=== PATIENT | female | born 1940 | race Asian ===

== ENCOUNTER 2020-04-29 21:44 | Emergency (ER) | payer SELFPAY ==
--- NOTE | 2020-04-29 22:35 | CT ---
CT cervical spine noncontrast HISTORY: Fall. Neck injury. FINDINGS: Vertebral body heights are maintained. No acute fracture or dislocation are apparent. Cervi cothoracic junction is intact. Disc space narrowing and minimal degenerative retrolisthesis at the C3-4 level where posterior disc b ulge and circumferential degenerative changes are also present, resulting in severe stenosis of the central canal. Multilevel foraminal stenoses are also present. Disc space narrowing is most pronounce d at the C5-6 level. Within the left thyroid lobe, a heterogeneous partially cystic mass containing calcification measures up to 2.0 cm length. Additional smaller low-density nodules are also evident within each thyroid lobe. IMPRESSION : Prominent degenerative changes of the cervical spine. No acute osseous abnormalities are demonstrated . Complex left thyroid lobe mass with calcifications. Further evaluation warranted. Please consider out patient dedicated thyroid sonogram for better characterization.
--- NOTE | 2020-04-29 22:37 | CT ---
CT head noncontrast HISTORY: Fall. Injury. FINDINGS: There is no evidence of acute intracranial hemorrhage or infarct. Mild diffuse cortical atr ophy. 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 Small foci of dystrophic calcification at the basal ganglia. There is no mass effect or shift of midline structures. Small amount of fluid within a right ethmoid air cell. No fractures evident. Scalp injury overlies the posterior vertex.. Small amount of gas may reflect a laceration of the scalp. IMPRESSION : No acute intracranial abnormalities are demonstrated.
--- NOTE | 2020-04-29 22:54 | RAD ---
Left shoulder 3 views HISTORY: Injury. FINDINGS: Acromioclavicular and glenohumeral alignment are maintained. No acute fracture or dislocati on. IMPRESSION : No abnormalities are demonstrated.
--- NOTE | 2020-04-29 22:55 | RAD ---
Chest one view HISTORY: Chest pain. FINDINGS: Cardiac silhouette and pulmonary vasculature are unremarkable. Mediastinum is midline with aortic calcification. No lobar consolidation or evidence of pneumothorax. IMPRESSION : No active cardiopulmonary abnormalities are demonstrated. Atherosclerosis.
--- NOTE | 2020-04-29 22:56 | RAD ---
Left humerus 2 views HISTORY: Injury. FINDINGS: No abnormalities are demonstrated.
--- NOTE | 2020-04-29 22:57 | RAD ---
Sacrum/coccyx 3 views HISTORY: Fall. Injury. FINDINGS: Sacral alae are intact. Mild degenerative changes of the sacroiliac joints and hips. No fracture or dislocation are apparent. IMPRESSION : No acute osseous abnormalities are demonstrated.
[2020-04-29 23:18] LABS: #Lymphocytes 0.8 thou/uL (1.20-3.40); #Monocytes 0.5 thou/uL (0.11-0.59); #Neutrophils 8.6 thou/uL (1.40-6.50); %Basophils 0.4 % (0.0-1.0); %Eosinophils 0.3 % (0.0-10.0); %Lymphocytes 7.7 % (21.0-51.0); %Monocytes 5.2 % (0.0-10.0); %Neutrophils 86.5 % (42.0-75.0); Hemoglobin 12.5 g/dL (12.0-16.0); Mean Corpuscular HGB CONC 32.9 g/dL (32.0-36.0); Mean Corpuscular Hemoglobin 32.7 pg (27.0-31.0); Mean Corpuscular Volume 99.3 fL (78.0-98.0); Mean Platelet Volume 6.4 fL (7.4-10.4); Platelet Count 207 thou/uL (130-400); Red Blood Cell (RBC) Count 3.82 mill/uL (4.20-5.40); White Blood Cell (WBC) Count 9.9 thou/uL (4.8-10.8)
[2020-04-29 23:40] LABS: ALT (SGPT) 38 U/L (8-55); AST (SGOT) 35 U/L (5-34); Albumin 4.1 g/dL (3.4-4.8); Alkaline Phosphatase 40 U/L (40-110); Anion Gap 16 mmol/L (10-20); BUN (Urea Nitrogen) 20 mg/dL (9.8-20.1); Calc. Creatinine Clearance 0 mL/min (70-130); Calcium 8.9 mg/dL (7.8-10.44); Carbon Dioxide 24 mmol/L (23-31); Chloride 106 mmol/L (98-107); Globulin 2.4 g/dL (2.4-3.5); Glucose 116 mg/dL (83-110); Potassium 4.2 mmol/L (3.5-5.1); Protein, Total 6.5 g/dL (6.0-8.3); Sodium 142 mmol/L (136-145)
[2020-04-30 00:31] LABS: Bilirubin Negative (Negative); Blood, Urine Negative (Negative); Clarity Clear (Clear); Glucose, Urine (Dipstick) Normal (Negative); Ketone, Urine 10 mg/dL (Negative); Leukocyte Negative Leu/uL (Negative); Nitrite Negative (Negative); Protein, Urine (Dipstick) 20 mg/dL (Neg-Trace); Specific Gravity, Urine 1.019 (1.002-1.036); Urobilinogen Normal mg/dL (Less than 2)
== END 2020-04-30 01:03 | disposition home or self-care (01) ==
LOC: ERS 21:44
DX: S01.01XA Laceration without foreign body of scalp, initial encounter (principal); S60.222A Contusion of left hand, initial encounter; S40.222A Blister (nonthermal) of left shoulder, initial encounter; R42 Dizziness and giddiness; R29.700 NIHSS score 0; M53.3 Sacrococcygeal disorders, not elsewhere classified; W01.0XXA Fall on same level from slipping, tripping and stumbling without subsequent striking against object, initial encounter; Y92.009 Unspecified place in unspecified non-institutional (private) residence as the place of occurrence of the external cause
CPT/HCPCS: 70450; 71045; 72125; 72220; 80053; 81003; 84484; 85025; 93005

== ENCOUNTER 2020-05-02 09:46 | Inpatient (IN) | payer SELFPAY ==
[2020-05-02 11:02] LABS: #Basophils 0.1 thou/uL (0.0-0.2); #Monocytes 0.6 thou/uL (0.11-0.59); %Eosinophils 0.7 % (0.0-10.0); %Lymphocytes 14.9 % (21.0-51.0); %Monocytes 9.2 % (0.0-10.0); %Neutrophils 74.3 % (42.0-75.0); Hemoglobin 11.7 g/dL (12.0-16.0); Mean Corpuscular HGB CONC 33.4 g/dL (32.0-36.0); Mean Corpuscular Hemoglobin 33.4 pg (27.0-31.0); Mean Platelet Volume 6.4 fL (7.4-10.4); Platelet Count 209 thou/uL (130-400); RBC Distribution Width 11.8 % (11.5-14.5); White Blood Cell (WBC) Count 6.7 thou/uL (4.8-10.8)
--- NOTE | 2020-05-02 11:13 | RAD ---
PORTABLE CHEST: HISTORY: Recurrent falls. FINDINGS: Lungs are clear. No infiltrate or vascular congestion. Heart size upper normal. No effusion. IMPRESSION: No acute abnormality. POS: [facility]
[2020-05-02 11:34] LABS: ALT (SGPT) 28 U/L (8-55); AST (SGOT) 21 U/L (5-34); Albumin 3.9 g/dL (3.4-4.8); Alkaline Phosphatase 45 U/L (40-110); Anion Gap 12 mmol/L (10-20); BUN (Urea Nitrogen) 16 mg/dL (9.8-20.1); Bilirubin, Total 0.8 mg/dL (0.2-1.2); Calc. Creatinine Clearance 0 mL/min (70-130); Calcium 8.7 mg/dL (7.8-10.44); Carbon Dioxide 26 mmol/L (23-31); Chloride 107 mmol/L (98-107); Globulin 2.4 g/dL (2.4-3.5); Glucose 91 mg/dL (83-110); Potassium 3.4 mmol/L (3.5-5.1); Protein, Total 6.3 g/dL (6.0-8.3); Sodium 142 mmol/L (136-145)
[2020-05-02 15:28] LABS: Troponin I 0.012 ng/mL (< 0.028)
--- NOTE | 2020-05-02 16:09 | HP ---
[facility] CHIEF COMPLAINT: Falls. HISTORY OF PRESENT ILLNESS: This is a 79-year-old female, who presented to [facility] after apparently sustaining multiple falls beginning on 04/29/2020. The patient sustained multiple falls, landing on her scalp and back, presenting to the emergency room for evaluation. The patient underwent multiple imaging studies without evidence of acute fracture or dislocation. The patient underwent CT of the brain and cervical spine showing no acute process. The patient was recommended for potential admission and further evaluation, however, the family decided to return home due to lack of insurance. The patient apparently sustained another fall after returning home. At which point, family brought the patient back to the emergency room on 05/02/2020, for evaluation. The daughter reports the patient has been using a walker and a wheelchair; however, she is generally unattended at the daughter's home for most of the day as the daughter and her work and her children are at school. The daughter also reports the patient has exhibited some evidence of shortness of breath, especially with exertion or attempting to rise from a chair. No specific documented previous medical conditions or chronic medication per daughter's report. No recent medication exposure, fever, chills, or travel history. The patient did sustain bruising to her extremities with some pain in her hips and tailbone; however, no specific fracture was identified. In the emergency room, the patient underwent general evaluation with metabolic screening showing essentially negative findings. CT of the brain showed no acute intracranial process and plain radiographs and CT of the cervical spine were negative. PAST MEDICAL HISTORY: Question of early dementia. No specific treatment or evaluation. PAST SURGICAL HISTORY: Reviewed and negative. 1. Status post appendectomy. 2. Status post bilateral tubal ligation. CURRENT MEDICATIONS: Reviewed and negative. ALLERGIES: SULFA. FAMILY HISTORY: No inheritable diseases per family report. SOCIAL HISTORY: Resides in [place], [place], living with her daughter and son-in-law, originally from [facility]. No alcohol, tobacco, or illicit drug use. . REVIEW OF SYSTEMS: CONSTITUTIONAL: Negative for weight loss or gain, ability to conduct usual activities. SKIN: Negative for rash, itching. EYES: Negative for double vision, pain. ENT/MOUTH: Negative for nose bleeding, neck stiffness, pain, tenderness. CARDIOVASCULAR: Negative for palpitations, dyspnea on exertion, orthopnea. RESPIRATORY: Negative for shortness of breath, wheezing, cough, hemoptysis, fever or night sweats. GASTROINTESTINAL: Negative for poor appetite, abdominal pain, heartburn, nausea, vomiting, constipation, or diarrhea. GENITOURINARY: Negative for urgency, frequency, dysuria, nocturia. MUSCULOSKELETAL: Negative for pain, swelling. NEUROLOGIC/PSYCHIATRIC: Negative for anxiety, depression. ALLERGY/IMMUNOLOGIC: Negative for skin rash, bleeding tendency. Otherwise, negative except as stated per HPI. PHYSICAL EXAMINATION: VITAL SIGNS: On admission; blood pressure 107/67, pulse 84, respiratory rate 16, temperature 98 degrees Fahrenheit, and O2 saturation 100% on room air. GENERAL APPEARANCE: This is a 79-year-old female alert, smiling, responsive, in no acute distress. HEENT: Pupils are equal, round, reactive to light and accommodation. Extraocular muscles are intact. No scleral icterus. No conjunctival injection. Nares patent. OP is clear. Teeth in good repair. NECK: Supple. No cervical adenopathy. No thyromegaly. No carotid bruits. No JVD appreciated. Cervical spine with full active and passive range of motion. No meningeal signs noted. CHEST: Lungs are clear to auscultation bilaterally. CARDIOVASCULAR: S1 and S2 without noted murmur, rub, or gallop. ABDOMEN: Rounded, soft, nontender, and nondistended. Bowel sounds are positive in all 4 quadrants. There is no hepatosplenomegaly. No abdominal bruits no rebound or guarding appreciated. EXTREMITIES: Warm and dry with fair turgor. Bruising noted on the upper extremities. Mild pitting edema noted to the mid shins bilaterally. Pulses palpable distally at the dorsalis pedis, posterior tibial, and popliteal arteries bilaterally. Capillary refill less than 2 seconds. NEUROLOGIC: Cranial nerves 2 through 12 are grossly intact. No focal or lateralizing signs appreciated. Not observed ambulatory during this exam. PERTINENT LABORATORY AND X-RAY FINDINGS: Sodium 142, potassium 3.4, chloride 107, CO2 of 26, BUN 16, creatinine 0.84, glucose 91, calcium 8.7. LFTs within normal limits. Troponin I negative x1. BNP less than 10. TSH 1.21. CBC showed a white blood cell count of 6.7, hemoglobin 12, hematocrit 35, MCV 100, and platelet count [address] of the cervical spine dated 04/29/2020, showed no acute intracranial process. CT of the cervical spine dated 04/29/2020, showed no acute fracture or dislocation. Plain radiographs of the left upper extremity showed no fracture or dislocation. Telemetry monitoring shows sinus mechanism with heart rates in the 70s. ASSESSMENT AND PLAN: 1. Vertigo with falls. The patient will be observed on the stroke unit. We will continue evaluation to include MRI imaging of the brain to rule out occult cerebrovascular accident. Check orthostatic vital signs and carotid Doppler study. Check 2D transthoracic echocardiogram. PT evaluation for functional assessment. 2. Closed head injury, status post fall. Continue supportive management. General fall risk precautions. See #1 above. 3. Macrocytic anemia. Check B12 and folate level in the a.m. Repeat CBC. 4. Hypokalemia. Potassium chloride supplementation with repeat potassium level in the a.m. 5. Prophylaxis. SCDs while in bed. Pepcid 20 mg p.o. b.i.d. PT evaluation pending. 6. Code status is full. Surrogate medical decision maker is the patient's daughter. Job ID: [id number]
[2020-05-02 16:53] LABS: Bilirubin Negative (Negative); Blood, Urine Negative (Negative); Clarity Clear (Clear); Glucose, Urine (Dipstick) Normal (Negative); Ketone, Urine Negative (Negative); Leukocyte Negative Leu/uL (Negative); Nitrite Negative (Negative); Protein, Urine (Dipstick) Negative (Neg-Trace); Specific Gravity, Urine 1.019 (1.002-1.036); Urobilinogen Normal mg/dL (Less than 2); pH, Urine 6.5 (5.0-9.0)
[2020-05-02 17:22] LABS: Troponin I 0.014 ng/mL (< 0.028)
[2020-05-02] MEDS ORDERED: Ondansetron ODT 4 MG TAB PO PRN (19:04)
[2020-05-02] MEDS ORDERED: Ondansetron PF 4 MG/2 ML Vial IVP PRN (19:04)
[2020-05-02] MEDS ORDERED: Acetaminophen 500 MG TAB PO PRN (19:04)
[2020-05-02 19:06] VITALS: BMI 19.5
[2020-05-02] MEDS ORDERED: Potassium Chloride 20 MEQ TAB PO SCH (22:00)
--- NOTE | 2020-05-02 22:38 | ULT ---
BILATERAL CAROTID DUPLEX ULTRASOUND: HISTORY: Vertigo. Falls. TECHNIQUE: Grayscale, color-flow and spectral Doppler ultrasound imaging of the extracranial carotid artery syst ems and vertebral arteries was performed bilaterally. FINDINGS: No large amount of echogenic plaque is seen involving the common carotid or internal carotid arteries . The peak systolic velocity in the right ICA measures 66.1 cm/s. The peak systolic velocity in the ri ght CCA measures 86.0 cm/s. The peak systolic velocity in the left ICA measures 66.4 cm/s. The peak systolic velocity in the l eft CCA measures 93.0 cm/s. The right IC/CC ration is0.8. The left IC/CC ratio is 0.7. Vertebral flow: antegrade, bilaterally. Solid and cystic mass in the left thyroid lobe, incompletely evaluated measuring 2.5 x 2.3 x 3.5 cm. IMPRESSION: 1. No hemodynamically significant stenosis of left or right cervical carotid artery 2. Complex left thyroid nodule. Nonemergent outpatient thyroid ultrasound is recommended.
[2020-05-02] MEDS: Famotidine 20 MG TAB PO SCH (22:40)
[2020-05-03 04:45] LABS: #Eosinphils 0.1 thou/uL (0.0-0.7); #Lymphocytes 1.3 thou/uL (1.20-3.40); #Monocytes 0.7 thou/uL (0.11-0.59); #Neutrophils 5.9 thou/uL (1.40-6.50); %Basophils 0.5 % (0.0-1.0); %Eosinophils 1.4 % (0.0-10.0); %Lymphocytes 15.9 % (21.0-51.0); %Monocytes 8.4 % (0.0-10.0); %Neutrophils 73.7 % (42.0-75.0); Hemoglobin 11.2 g/dL (12.0-16.0); Mean Corpuscular HGB CONC 33.5 g/dL (32.0-36.0); Mean Corpuscular Volume 98.7 fL (78.0-98.0); Mean Platelet Volume 6.3 fL (7.4-10.4); Platelet Count 232 thou/uL (130-400); White Blood Cell (WBC) Count 7.9 thou/uL (4.8-10.8)
[2020-05-03 05:05] LABS: Anion Gap 12 mmol/L (10-20); BUN (Urea Nitrogen) 17 mg/dL (9.8-20.1); Calc. Creatinine Clearance 42 mL/min (70-130); Calcium 8.1 mg/dL (7.8-10.44); Carbon Dioxide 22 mmol/L (23-31); Chloride 110 mmol/L (98-107); Glucose 138 mg/dL (83-110); Potassium 4.6 mmol/L (3.5-5.1); Sodium 139 mmol/L (136-145)
[2020-05-03] MEDS ORDERED: Magnevist 469MG/ML 20 ML VIAL ONE (09:25)
[2020-05-03] MEDS: Famotidine 20 MG TAB PO SCH (10:48)
--- NOTE | 2020-05-03 11:38 | MRI ---
BRAIN MRI WITH AND WITHOUT CONTRAST: HISTORY: Generalized weakness. Falls. Evaluate for CVA versus transient ischemic attack. COMPARISON: None. FINDINGS: Appropriate T1 marrow signal intensity of the calvarium. Midline brain parenchymal structures are un remarkable. No hemorrhage on the axial gradient echo sequences. Hypointensities in the left and right lentiform nuclei represent calcification/mineralization. There is no parenchymal mass, mass effect, or midline shift. Brain volume is age appropriate. Corti gala dahl-white matter differentiation is preserved. No hydrocephalus. There are white matter hyperintensities. There are hyperintensities involving the deep dahl matter s tructures as well as the carlo and brachium pontus. There is no associated restricted diffusion or en hancement. Central arterial flow voids are maintained. There is no parenchymal restricted diffusion to suggest acute infarct. Mild mucosal thickening of the ethmoid air cells. Post contrast images do not demonstrate any pathologic enhancement of the brain parenchyma. IMPRESSION: 1. Absent restricted diffusion. No acute infarct. 2. No pathologic enhancement of the brain parenchyma. 3. T2 and FLAIR white matter hyperintensities along with hyperintensities involving the deep dahl ma tter structures. Differential considerations include acute necrotizing encephalopathy versus acute h ypertensive encephalopathy versus uremic encephalopathy versus osmotic demyelination. Correlate clin ically. CODE T POS: [facility]
[2020-05-03 15:32] VITALS: BP 120/64; TEMP 98.4
--- NOTE | 2020-05-03 16:39 | CON ---
DATE OF CONSULTATION: 05/03/2020 CONSULTING PHYSICIAN: Hospitalist Services. IMPRESSION: Severe leukoaraiosis with secondary gait ataxia. Unfortunately, there is no treatment available for this. PLAN: 1. Home exercise program. 2. Wheelchair mobilization to avoid falls. HISTORY OF PRESENT ILLNESS: Ms. Caruso is a 79-year-old female who presented with some progressive decline in her balance. She initially started using a cane and then switched to a walker. She fell backward with a walker despite the family's best efforts to protect her. She has no vascular risk factors. She was brought in for evaluation due to the injuries of her left arm. She had a CT of the brain, which was unremarkable. MRI of the brain revealed extensive white matter changes bilaterally. There are some changes down in the carlo as well. B12 and folate were in normal range. Her carotids were clear. She otherwise has been noted to only have some mild forgetfulness. She controls her bowel and bladder. ALLERGIES: SULFA. MEDICATIONS: As per chart. SOCIAL HISTORY: No tobacco or alcohol use. FAMILY HISTORY: Positive for some similar issues in her parents. REVIEW OF SYSTEMS: Ten-system review of systems is otherwise negative. PHYSICAL EXAMINATION: GENERAL: She is a healthy-appearing elderly lady, in no distress. VITAL SIGNS: Blood pressure 119/82, respirations 18, pulse 76, and temperature 98.3. HEENT: Pupils equal and reactive. Conjunctivae clear. Oropharynx clear. NECK: Supple. No lymphadenopathy. EXTREMITIES: No cyanosis, clubbing, or edema. SKIN: There is some ecchymosis in the left arm. ABDOMEN: Soft and nontender. NEUROLOGIC: She was alert and appropriate. She followed commands well. Her speech was fluent and clear. Cranial nerves were intact throughout. Motor exam showed good strength bilaterally. She has some limited mobility of the left arm secondary to pain. Sensation was intact to touch. Proprioception was also intact. Plantar responses were downgoing. Gait was not tested. No abnormal movements were seen. 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 Fortunately, there is little we can offer. We will be happy to follow up with her as an outpatient to assist in her care. Job ID: [id number]
[2020-05-03 18:21] LABS: SARS-CoV-2 MS2 Positive; SARS-CoV-2 N Gene Negative; SARS-CoV-2 S Gene Negative; SARS-CoV-2 by NAA Not Detected (NotDetected); SARS-CoV-2 orf1ab Negative
--- NOTE | 2020-05-04 11:11 | DIS ---
DATE OF ADMISSION: 05/03/2020 DATE OF DISCHARGE: 05/03/2020 DISCHARGE DIAGNOSES: 1. Vertigo with repetitive falls. 2. Closed head injury secondarily to vertigo, stable. 3. Encephalopathy, question of ischemic versus osmotic demyelination conservative management. 4. Macrocytic anemia, chronic and stable. 5. Hypokalemia, resolved. CONSULTATIONS: Dr. Feliciano with Neurology Service. PERTINENT LABORATORY AND X-RAY FINDINGS: Potassium ranged between 3.4 to 4.6. BNP less than 10. Vitamin B12 level 343. Folate level 7.60. TSH 1.21. CBC showed a hemoglobin of 11.7, hematocrit 35, MCV ranged between 99 to 100. Urinalysis negative. Carotid Doppler study dated 05/02/2020, showed no hemodynamically significant stenosis. Portable chest x-ray dated 05/02/2020, showed no acute cardiopulmonary process. CT of the brain without contrast dated 04/29/2020, showed no acute intracranial process. MRI of the brain dated 05/03/2020, showed no acute process. Hyperintensities involving the deep dahl matter with question of encephalopathy due to ischemic changes versus uremic versus osmotic demyelination. 2D transthoracic echocardiogram dated 05/03/2020, showed ejection fraction of 60% to 65%. Diastolic dysfunction noted. HOSPITAL COURSE: The patient was observed on the Stroke Unit after initially presenting with multiple falls and vertiginous symptoms. The patient underwent multiple imaging modalities showing no acute process. However, the patient did show deep dahl matter hyperintensities consistent with encephalopathy likely ischemic in nature. The patient was evaluated by the Neurology Service without specific recommendation for intervention for medical therapy. The patient was cautioned regarding ambulation using a rolling walker or wheelchair to mitigate recurrent falls. The patient may need additional supervision at her residence with 24-hour care. Overall, the patient did remain clinically stable during the hospital course. I have examined the patient at the time of discharge and discussed followup instructions. The patient verbalizes understanding and in agreement and ready for discharge on 05/03/2020. DISCHARGE MEDICATIONS: 1. Calcium carbonate 500 mg p.o. b.i.d. 2. Glucosamine one tablet p.o. daily. FOLLOWUP: The patient may follow up with [place], [place]. CONDITION ON DISCHARGE: Fair. ACTIVITY: Ad clinton, rolling walker or wheelchair for ambulation/mobilization. DIET: Regular. CODE STATUS: Full. DISPOSITION: To home, 05/03/2020. Job ID: [id number]
--- NOTE | 2020-05-06 15:21 | EKG ---
Test Reason : Blood Pressure : / mmHG Vent. Rate : 071 BPM Atrial Rate : 071 BPM P-R Int : 158 ms QRS Dur : 066 ms QT Int : 396 ms P-R-T Axes : 054 003 051 degrees QTc Int : 430 ms Normal sinus rhythm Normal ECG Confirmed by KAMRAN VOGEL DO ([id number]), society editor COLTON GRUBBS ([id number]) on 05/06/2020 3:21:09 PM Referred By: Confirmed By:KAMRAN VOGEL DO
== END 2020-05-03 18:00 | disposition home or self-care (01) | DRG 69 ==
LOC: ERS 09:46 → 2SE 12:33 → OBSVTOIN 05-03 15:30
PROVIDERS: ADMIT Family Medicine; ATTEND Family Medicine
DX: I67.81 Acute cerebrovascular insufficiency (principal); G93.49 Other encephalopathy; Z20.828 Contact with and (suspected) exposure to other viral communicable diseases; Z23 Encounter for immunization; D53.9 Nutritional anemia, unspecified; E87.6 Hypokalemia; R29.6 Repeated falls; S09.90XA Unspecified injury of head, initial encounter; W19.XXXA Unspecified fall, initial encounter; R26.0 Ataxic gait; Z90.49 Acquired absence of other specified parts of digestive tract; Z98.51 Tubal ligation status; Z88.2 Allergy status to sulfonamides; Z79.899 Other long term (current) drug therapy
CPT/HCPCS: 36415; 70553; 71045; 80048; 80053; 81003; 82607; 82746; 83880; 84443; 84484; 85025; 87635; 93005; 93306; 93880; A9579; G0378; U0003